=== PATIENT | female | born 1980 | race Caucasian/White ===

== ENCOUNTER 2019-08-09 04:19 | Emergency (ER) | payer OTHER ==
[~2019-08-09] VITALS: Ht 167.6 cm; Wt 104.3 kg
[~2019-08-09 04:19] MED LIST: ACETAMINOPHEN-1 EAC1 PO; ADDERALL; FLAGYL500 MG PO; NAPROSYN500 MG PO; ONDANSETRON HCL4 M2 PO; TORADOL 10 MG T10 MG PO
[2019-08-09] MEDS ORDERED: LEXAPRO 10 MG T10 M2 PO (04:32)
[2019-08-09] MEDS ORDERED: SYNTHROID175 MCG PO (04:33)
[2019-08-09] MEDS ORDERED: WELLBUTRIN SR150 MG PO (04:33)
[2019-08-09 04:43] LABS: ABSOLUTE BASOPHILS 0.1 thou/uL (0.0-0.2); ABSOLUTE EOSINOPHILS 0.2 thou/uL (0.0-0.7); ABSOLUTE LYMPHOCYTES 1.8 thou/uL (0.8-5.3); ABSOLUTE MONOCYTES 0.4 thou/uL (0.0-1.2); ABSOLUTE NEUTROPHILS 3.5 thou/uL (1.6-8.1); EOSINOPHILS 3.1 %; HEMATOCRIT 41.2 % (37.0-47.0); HEMOGLOBIN 14.5 gm/dL (12.0-15.0); LYMPHOCYTES 30.7 %; MCH 35.8 pg (26.0-34.0); MCHC 35.2 g/dL (28.0-37.0); MCV 101.6 fL (80.0-100.0); MPV 8.6 fl. (7.2-11.1); NUCLEATED RBCS 0 /100WBC; PLATELET COUNT* 195 thou/uL (150-400); POLYS 58.2 %; RBC 4.05 mil/uL (4.20-5.00); RDW-CV 11.8 % (10.5-14.5)
[2019-08-09 05:00] LABS: CALCIUM 8.8 mg/dL (8.5-10.1); CREATININE 0.7 mg/dL (0.6-1.3); POTASSIUM 4.2 mmol/L (3.5-5.1)
[2019-08-09 05:01] LABS: PROTIME 10.1 Seconds (9.20-11.50)
[2019-08-09 05:09] LABS: ALBUMIN 3.8 g/dL (3.4-5.0); TOTAL BILIRUBIN 0.4 mg/dL (<0.1-1.0); TOTAL PROTEIN 7.2 g/dL (6.4-8.2)
[2019-08-09 05:17] LABS: URINE BILIRUBIN NEGATIVE (Negative); URINE BLOOD NEGATIVE (Negative); URINE CLARITY CLEAR; URINE COLOR YELLOW; URINE GLUCOSE-RANDOM NEGATIVE (Negative); URINE KETONES NEGATIVE (Negative); URINE LEUKOCYTES-REFLEX NEGATIVE (Negative); URINE NITRITE-REFLEX NEGATIVE (Negative); URINE PROTEIN NEGATIVE (Negative); URINE UROBILINOGEN 0.2 E.U./dl (0.2-1.0)
[2019-08-09 07:07] VITALS: BP 130/78
--- NOTE | 2019-08-09 10:47 | EKG ---
[place] [address] ELECTROCARDIOGRAM REPORT Name: KARI,ADOLFO Karl Room: [facility]#: [id number] Admission: 08/09/19 Attend Phys: Discharge: 08/09/19 Date of : 76 Date of Service: 08/09/19 0424 Report #: [id number] THIS REPORT FOR: //name// [facility] ED Test Date: 2019-08-09 Test Time: 04:24:35 Pat Name: ADOLFO PIERCE Department: Room: Gender: F [employer] Editor: MR : 1980 Requested By: Radha Bojorquez Order Number: [id number] MD: Pietro Uribe Measurements Intervals [place] Rate: 73 P: 5 CA: 134 QRS: 47 QRSD: 83 T: 58 QT: 417 QTc: 460 Interpretive Statements Sinus rhythm Compared to ECG 03/17/2009 18:19:12 No significant changes Electronically Signed On 08-09-2019 10:46:00 [employer] by Pietro Uribe [email or web address] <ELECTRONICALLY SIGNED> By: Pietro Uribe MD, [facility] 08/09/19 1046 0424 0424 Pietro Uribe MD, [facility] /EPI
== END 2019-08-09 07:09 | disposition home or self-care (01) ==
LOC: M.ERS 04:19
PROVIDERS: Emergency Medicine
DX: R07.89 Other chest pain (principal); Z88.8 Allergy status to other drugs, medicaments and biological substances; Z90.710 Acquired absence of both cervix and uterus; Z86.73 Personal history of transient ischemic attack (TIA), and cerebral infarction without residual deficits